=== PATIENT | male | born 1940 | race African-American/Black ===

== ENCOUNTER → 2017-08-14 | Outpatient (CLI) | payer MEDICARE ==
[~2017-08-14] MED LIST: CONTRAST GIVEN MC PRN; IOHEXOL 300 MG/ML 100ML VIAL. IV ONE
--- NOTE | 2017-08-14 16:04 | RAD ---
CT study of the soft tissues of the neck with contrast Clinical indications: History of neck cancer and tracheostomy. Patient feels a mass in the inferior aspect of the neck. Technique: After IV infusion of 70 cc of Omnipaque 300, helical CT scanning of the neck was performed. Multiplanar 2-D reconstructions were generated. PQRS Compliance Statement: One or more of the following individualized dose reduction techniques were utilized for this examination: 1. Automated exposure control 2. Adjustment of the mA and/or kV according to patient size 3. Use of iterative reconstruction technique Comparison: None available. Findings: An enhancing nodules of the parotid gland is seen on both sides. Enhancing nodule of the right parotid gland measures 13 mm. Enhancing nodule of the left parotid gland measures 14 mm. There is another enhancing nodule of the posterior aspect of the left parotid gland which measures 10 mm. These most likely represent intraparotid lymph nodes. No other enlarged cervical lymphadenopathy is seen. The submandibular salivary glands are unremarkable. There is enlargement of the right lobe of the thyroid gland. This is due to a hypoechoic nodule measuring 2.9 cm in greatest dimension. This may represent the palpable finding. The patient indicated to the eeg technologist that the nodule is deep to the tracheostomy. The true cords and false cords and preepiglottic fat space and epiglottis are unremarkable. There is symmetric soft tissue thickening of the aryepiglottic folds. No abnormal enlargement of the palatine tonsils is seen. The adenoids are thickened measuring 24 mm in AP dimension. No lung apical nodule is seen. Tracheostomy tube is in place. No osteolytic process is evident. There is a mucous retention cyst of the floor of the left maxillary size measuring 20 mm. There is mild circumferential mucosal thickening of both maxillary sinuses. There is opacification of left mastoid sinus including the epitympanic recess of the left middle ear cavity. IMPRESSION: Enlarged right lobe of the thyroid gland due to 2.9 cm hypoechoic nodule. Recommend thyroid sonography for further evaluation. Potentially, this could be biopsied at the same time using ultrasound guidance although this may be difficult given the tracheostomy. Sonography of the thyroid that may be difficult given the tracheostomy as well. If this is not accessible by sonography, then surgical consultation may be necessary. Bilateral intraparotid gland nodules most likely representing intraparotid lymph nodes. This may be followed with a CT study and IV contrast in 6 months to ensure stability unless a palpable abnormality develops in the interim. Enlarged adenoids. Symmetric soft tissue thickening of the aryepiglottic folds. Left mastoiditis including the epitympanic recess of the left middle ear cavity.
== END | disposition home or self-care (01) ==
LOC: CT 09:07
PROVIDERS: ATTEND Internal Medicine
DX: H70.92 Unspecified mastoiditis, left ear (principal)
CPT/HCPCS: 70491; Q9967

== ENCOUNTER → 2017-09-13 | Outpatient (CLI) | payer MEDICARE ==
--- NOTE | 2017-09-13 09:44 | RAD ---
Thyroid ultrasound, 09/13/2017: History: Right thyroid nodule The study was severely compromised by the presence of a tracheostomy tube. The left lobe of the gland could not be visualized. The patient's known right thyroid nodule was incompletely visualized. It measures approximately 3 cm. There is a smooth hypoechoic rim. There are heterogeneous internal echoes. No calcification is evident. The sonographic features are nonspecific. Note is made that comparison of the 08/14/2017 CT exam with an older study from 11/22/2016 shows no interval change. Due to the anatomy and partial obscuration by the tracheostomy tube, ultrasound-guided biopsy is not felt to be feasible. IMPRESSION: Incomplete study demonstrating a nonspecific 3 cm right thyroid nodule which is unchanged since 11/22/2016. CT follow-up is suggested to confirm stability.
== END | disposition home or self-care (01) ==
LOC: US 08:06
PROVIDERS: ATTEND Internal Medicine
DX: E04.1 Nontoxic single thyroid nodule (principal)
CPT/HCPCS: 76536

== ENCOUNTER 2017-10-28 20:32 | Emergency (ER) | payer MEDICARE ==
[2017-10-28] MEDS ORDERED: LIDOCAINE WITH 8.4% SOD BICARB 3 ML DISP.SYRIN. IJ (20:52)
[2017-10-28] MEDS: LIDOCAINE WITH 8.4% SOD BICARB 3 ML DISP.SYRIN. IJ (21:00)
[2017-10-28] MEDS: LIDOCAINE 2%/EPI 1:100,000 20 ML VIAL. INJ (21:00)
[2017-10-28] MEDS ORDERED: CONTRAST GIVEN MC (21:45)
[2017-10-28] MEDS: IOHEXOL 300 MG/ML 100ML VIAL. IJ (21:48)
== END 2017-10-29 00:13 | disposition home or self-care (01) ==
LOC: ER 10-29 00:13
DX: K94.23 Gastrostomy malfunction (principal); I48.91 Unspecified atrial fibrillation; J44.9 Chronic obstructive pulmonary disease, unspecified; K21.9 Gastro-esophageal reflux disease without esophagitis; E78.00 Pure hypercholesterolemia, unspecified; I10 Essential (primary) hypertension; E05.90 Thyrotoxicosis, unspecified without thyrotoxic crisis or storm; Z88.5 Allergy status to narcotic agent; Z88.8 Allergy status to other drugs, medicaments and biological substances; Y83.3 Surgical operation with formation of external stoma as the cause of abnormal reaction of the patient, or of later complication, without mention of misadventure at the time of the procedure
CPT/HCPCS: 43760; 74018; 99284-25; J3490; Q9967